=== PATIENT | male | born 1975 | race Caucasian/White ===

== ENCOUNTER 2024-09-23 12:16 | Emergency (ER) | payer MEDICARE, OTHER ==
[~2024-09-23] VITALS: Ht 165.1 cm; Wt 75.0 kg
[2024-09-23 12:19] VITALS: O2SAT 99
[2024-09-23 12:26] VITALS: BP 115/82; PULSE 84; RESP 16; TEMP 98.2; O2SAT 98
[2024-09-23] MEDS ORDERED: SULF1TAB47 MT (15:28)
[2024-09-23] MEDS ORDERED: CEPH500C2 MT (15:28)
== END 2024-09-23 16:44 | disposition home or self-care (01) ==
LOC: ER 12:23 → EDBD 12:23 → ER 16:44
DX: L72.0 Epidermal cyst (principal)
CPT/HCPCS: 73140; 99283